=== PATIENT | female | born 1940 | race Caucasian/White ===

== ENCOUNTER → 2024-03-25 15:46 | Outpatient (REF) | payer MEDICARE, OTHER, SELFPAY | LOC: WDC 15:46 | PROVIDERS: ATTENDING PHYSICIAN Internal Medicine | DX: Z12.31 Encounter for screening mammogram for malignant neoplasm of breast (principal) | CPT/HCPCS: 77063; 77067 ==

== ENCOUNTER → 2024-04-18 11:17 | Outpatient (REF) | payer MEDICARE, OTHER, SELFPAY | LOC: MRI 3T 11:17 | PROVIDERS: ATTENDING PHYSICIAN Specialist; FAMILY PHYSICIAN Internal Medicine | DX: M25.562 Pain in left knee (principal); M17.12 Unilateral primary osteoarthritis, left knee | CPT/HCPCS: 73721 ==

== ENCOUNTER → 2024-05-08 08:20 | Outpatient (REF) | payer MEDICARE, OTHER, SELFPAY | LOC: MRI 3T 08:20 | PROVIDERS: ATTENDING PHYSICIAN Orthopaedic Surgery; FAMILY PHYSICIAN Internal Medicine | DX: M54.12 Radiculopathy, cervical region (principal) | CPT/HCPCS: 72141 ==

== ENCOUNTER → 2024-05-20 08:45 | Outpatient (REF) | payer MEDICARE, OTHER, SELFPAY ==
[2024-05-20 09:56] LABS: % Basophils 1.5 % (0-2); % Eosinophils 6.5 % (0-6); % Immature Granulocytes 0.3 % (0-0.5); % Lymphocytes 37.2 % (20.5-51.1); % Neutrophils 46.5 % (42.2-75.2); Absolute Basophils 0.1 10^3/uL (0-0.2); Absolute Eosinophils 0.4 10^3/uL (0-0.7); Absolute Lymphocytes 2.5 10^3/uL (1.2-3.4); Absolute Monocytes 0.5 10^3/uL (0.1-0.6); Absolute Neutrophils 3.1 10^3/uL (1.4-6.5); Hematocrit 43.8 % (37.0-47.0); Hemoglobin 14.4 g/dL (12.0-16.0); Mean Corp Hgb Conc. 32.9 g/dL (33.0-37.0); Mean Corpuscular Hgb 30.9 pg (27.0-31.0); Mean Platelet Volume 9.5 fL (7.4-10.4); Nucleated Red Blood Cells % 0 %; Platelet Count 286 10^3/uL (130-400); Red Blood Cell Count 4.66 10^6/uL (4.20-5.40); Red Cell Dist. Width 12.4 % (11.5-14.5); White Blood Cell Count 6.6 10^3/uL (4.8-10.8)
[2024-05-20 10:11] LABS: Blood Urea Nitrogen 29 mg/dl (7-17); Calcium 9.7 mg/dl (8.4-10.2); Carbon Dioxide 24 mmol/L (22-30); Chloride 108 mmol/L (98-107); Glucose 66 mg/dl (70-99); Potassium 3.8 mmol/L (3.5-5.1); Sodium 142 mmol/L (135-145); eGFR 55.21
== END ==
LOC: SDSPAT 08:45
PROVIDERS: ATTENDING PHYSICIAN Specialist; FAMILY PHYSICIAN Internal Medicine
DX: Z01.818 Encounter for other preprocedural examination (principal)
CPT/HCPCS: 36415; 80048; 85025; 93005

== ENCOUNTER 2024-05-26 12:08 | Emergency (ER) | payer MEDICARE, OTHER, SELFPAY ==
[2024-05-26 12:19] VITALS: BP 123/80
--- NOTE | 2024-05-26 12:51 | ED.MUSCINJ ---
HPI-Injury
General
Chief Complaint: Fall
Source: patient
Exam Limitations: none
Time Seen by Provider: 05/26/24 12:39
Nursing documentation reviewed up to this point in time: agreed with
History of Present Illness-Injury
Initial Injury comments:
84 yo female sent here from . Yesterday in her garden was stepping backwards and stumbled, fell, striking the back of her head on a wooden fence. No LOC, denies headache, mildly sore at the site. Denies change in vision, denies n/v. Denies neck
new pain (has chronic neck pain and is scheduled for an injection next week ) or any other injury.
Past History
Past History
ED Past Medical History: HTN
ED Past Surgical History: Appendectomy and Tonsilectomy
Social History
Personal:
Living: alone
Review of Systems
Review of Systems
Allergies reviewed?: Yes
All Other Systems: ROS reviewed and negative except as documented in HPI and ROS
Constitutional: Denies fatigue
ABD/GI: Denies nausea or vomiting
Musculoskeletal: Reports no symptoms
Skin: Reports no symptoms
Neurological: Reports no symptoms
Phy Exam
Physical Exam
Physical Exam:
CONSTUTIONAL: Afebrile.
Head: mild tenderness lower occiput, no swelling or discoloration
EYES: PERRL, conjunctivae normal
Neck: Supple
ENMT: moist mucus membranes, Pharynx nl
RESPIRATORY: Regular respirations, nonlabored, lungs clear.
CARDIOVASCULAR: Regular rate and rhythm, no murmurs, no rubs.
GI: Soft, nontender, normal BS
MUSCULOSKELETAL: No spinal bony tenderness. Moves with ease. Well perfused. Very spry, Full ROM of all extremities and spine with hands flat on floor.
SKIN: Warm, dry, pink
PSYCH: Normal mood and affect. Well kept, interactive and appropriate
NEUROLOGIC: Awake, alert and oriented. No focal neurological deficits. CN 2-12 intact. Ambulates well with steady gait.
MDM/Problems Addressed
Differential Diagnosis Includes:
Contusion scalp, minor head injury, concussion
MDM/Problems Addressed:
84 yo female sent here from . Yesterday in her garden was stepping backwards and stumbled, fell, striking the back of her head on a wooden fence. No LOC, denies headache, mildly sore at the site. Denies change in vision, denies n/v. Denies neck
new pain (has chronic neck pain and is scheduled for an injection next week ) or any other injury.
Patient is very spry, full range of motion of all extremities, full range of motion of her spine, no bony tenderness, no indication for imaging
No loss of consciousness, not anticoagulated, no focal neurological deficits, no significant headache, no indication for head CT
No sign of concussion
*Critical Care Note
Total Time (30-74mins, 75-104mins- exclusive of procedures): Not Applicable
ED Attending Note
-
Portions of this chart may have been created with voice recognition software.� Occasional wrong word or��sound alike� substitutions may have occurred due to the inherent limitations of voice recognition software.
Discharge Plan
Departure
Patient Disposition: Home (Routine Discharge)
Date of Disposition: 05/26/24
Time of Disposition: 12:55
Patient with high blood pressure during this ER visit?: No
Condition: Good
Discharge Problem:
Fall from slip, trip, or stumble, Minor head injury, Contusion of scalp
Instructions: Head Injury in Adults (DC), Contusion (DC), Preventing falls in adults
Prescriptions:
No Action
candesartan-hydrochlorothiazid [Atacand HCT] 1 EACH tablet
1 tab PO DAILY
pantoprazole 40 MG tablet,delayed release (DR/EC)
40 mg PO DAILY 30 Days Qty: 30 0RF
amoxicillin-pot clavulanate 875-125 mg tablet
1 tab PO Q12H Qty: 14 0RF
hydrocodone-acetaminophen 5-325 mg tablet
1 tab PO Q4H PRN (Reason: Pain) Qty: 10 0RF
meclizine [Antivert] 25 mg tablet,chewable
25 mg PO Q8HPRN PRN (Reason: nausea or vertigo) Qty: 14 0RF
Referrals:
Valentine Freitas MD [Family Provider] - As needed
Activity Restrictions/Additional Instructions:
As we discussed, I see nothing worrisome in your exam. No sign of concussion.
Interventions
Interventions:
*Risk Screen - Suicide Last Done: 05/26/24 12:19
*General Assessment Last Done: 05/26/24 12:19
*Neglect/Abuse Screening Last Done: 05/26/24 12:19
ED- Fall Risk Assessment Last Done: 05/26/24 13:02
*ED COVID-19 Vaccine History Last Done: 05/26/24 12:19
*Nursing Disposition Last Done: 05/26/24 13:02
ED-Musculoskeletal Assessment Last Done: 05/26/24 13:01
ED- Neurological Assessment Last Done: 05/26/24 13:01
ED-Skin Assessment Last Done: 05/26/24 13:01
Discharge Date and Time
Discharge Date/Time: 05/26/24 13:03
Print Language: AUSTRIAN
== END 2024-05-26 13:03 | disposition home or self-care (01) ==
LOC: EMR 12:08
PROVIDERS: EMERGENCY PHYSICIAN Emergency Medicine; FAMILY PHYSICIAN Internal Medicine
DX: S00.03XA Contusion of scalp, initial encounter (principal); S09.90XA Unspecified injury of head, initial encounter; W01.198A Fall on same level from slipping, tripping and stumbling with subsequent striking against other object, initial encounter; I10 Essential (primary) hypertension; M54.2 Cervicalgia; G89.29 Other chronic pain; Z88.5 Allergy status to narcotic agent
CPT/HCPCS: 99282

== ENCOUNTER 2024-06-06 06:05 | Day surgery (SDC) | payer MEDICARE, OTHER, SELFPAY ==
[2024-05-20 09:01] VITALS: BMI 19.1
[2024-06-06] VITALS (8 sets, daily range): BP systolic 103–179; BP diastolic 54–88; BMI 19.1
[2024-06-06] MEDS: CELEBREX 200 MG PO (06:25)
[2024-06-06] MEDS: NORMOSOL-R 1000 IV (06:25)
[2024-06-06] MEDS: TYLENOL 1000 MG PO (06:25)
== END 2024-06-06 10:00 | disposition home or self-care (01) ==
LOC: SDS 06:05
PROVIDERS: ATTENDING PHYSICIAN Specialist
DX: S83.231A Complex tear of medial meniscus, current injury, right knee, initial encounter (principal); S83.281A Other tear of lateral meniscus, current injury, right knee, initial encounter; X58.XXXA Exposure to other specified factors, initial encounter; M94.261 Chondromalacia, right knee
CPT/HCPCS: 29880

== ENCOUNTER 2024-08-28 06:10 | Outpatient (RCR) | payer MEDICARE, OTHER, SELFPAY | END 2024-08-28 23:59 | disposition home or self-care (01) | LOC: RPT 06:10 | PROVIDERS: ATTENDING PHYSICIAN Internal Medicine | DX: R42 Dizziness and giddiness (principal); M54.2 Cervicalgia; Z73.6 Limitation of activities due to disability | CPT/HCPCS: 97110; 97162 ==

== ENCOUNTER → 2024-11-24 09:29 | Outpatient (REF) | payer MEDICARE, OTHER, SELFPAY ==
[2024-11-24 10:51] LABS: HDL Cholesterol 95 mg/dl; LDL Cholesterol, Calculated 85 mg/dl; Total Cholesterol 218 mg/dl (50-199); Triglyceride 190 mg/dl (10-149); Very Low Density Lipoprotein 38 mg/dl (0-30)
== END ==
LOC: REG 09:29
PROVIDERS: ATTENDING PHYSICIAN Internal Medicine
DX: E78.2 Mixed hyperlipidemia (principal)
CPT/HCPCS: 36415; 80061

== ENCOUNTER 2025-01-24 14:37 | Emergency (ER) | payer MEDICARE, OTHER, SELFPAY ==
[2025-01-24] VITALS (13 sets, daily range): BP systolic 158–215; BP diastolic 73–179; BMI 19.5
--- NOTE | 2025-01-24 15:43 | EDRN ---
this RN and Dr. Novak were at the pts bedside and Dr. Novak was discussing options for treatment, the pt appeared anxious, this RN attempted to talk the pt through deep breathing, the pt did not want IV medications for her hypertension and did not
want labs drawn and did not want a CT scan, but after Dr. Novak spoke with the pt the pt agreed with the PIV, IV medication, labs, and the head CT, the pts face is flushed, PIV was placed, labs drawn and sent
--- NOTE | 2025-01-24 15:43 | ED.GENMED ---
History of Present Illness
General
Chief Complaint: Blood Pressure Problem
Source: patient
Exam Limitations: none
Time Seen by Provider: 01/24/25 15:36
History of Present Illness
History of Present Illness:
See MDM
Past History
Past History
ED Past Medical History: HTN
ED Past Surgical History: Appendectomy and Tonsilectomy
Social History
Personal:
Living: alone
Phy Exam
Physical Exam
Physical Exam:
See MDM
Course
Orders/Labs/Results
Orders:
Orders
01/24/25 14:43
Electrocardiogram (*1) Urgent
Reason for Study: Hypertension, Benign
01/24/25 14:44
EKG- Treatment ONCE
01/24/25 15:42
CT Head W/o Iv Contrast Urgent
Comment:
Reason For Exam: dizzy, elevated BP, Headache
0.9% Sodium Chloride 1000 ml [Nss] 1,000 ml IV BOLUS
HydrALAZINE [Apresoline] 10 mg IV NOW STA
01/24/25 15:51
Complete Blood Count/With Diff Urgent
Comprehensive Metabolic Panel Urgent
Troponin I Urgent
01/24/25 17:14
Losartan [Cozaar] 50 mg PO NOW STA
Abnormal Lab Results
01/24/25
15:51
MCH 31.8 H pg
(27.0-31.0)
BUN 27 H mg/dl
(7-17)
01/24/25 15:51
01/24/25 15:51
Vital Signs
Initial and Last Documented VS:
Initial Vital Signs
Temp Pulse Resp BP Pulse Ox
98.2 F 68 16 215/110 98
01/24/25 14:41 01/24/25 14:41 01/24/25 14:41 01/24/25 14:41 01/24/25 14:41
Last Documented Vital Signs
Temp Pulse Resp BP Pulse Ox
98.5 F 82 16 191/86 99
01/24/25 15:43 01/24/25 17:22 01/24/25 17:21 01/24/25 17:22 01/24/25 17:21
MDM/Problems Addressed
Differential Diagnosis Includes:
HPI and MDM Narrative:
85-year-old female presenting with complaints of dizziness and head pressure. Patient states she has been feeling mildly dizzy for few days. Patient is convinced this is a mild exacerbation of her vertigo. She was visiting a friend and she
explained her symptoms. When I check, she was instructed to go to the emergency department for further evaluation. Her blood pressure is confirmed elevated but patient thinks this is related to not having her blood pressure medicine for 1 week.
She ran out of her pills and her usual prescription delivery has not arrived yet
On exam, she is well-appearing nontoxic. She is mildly dry. Will give IV fluids. She has normal finger-nose making stroke less likely. Given her uncontrolled blood pressure and her complaints, will obtain basic blood work and CT head. Will give
dose of IV hydralazine. Her heart rate is in the 60s. Will avoid beta-myron
Physical exam
General: Well appearing and non-toxic
HEENT: protecting airway. Mildly dry mucous membranes
Neck: appears supple
CV: No evidence of cyanosis. Regular rate and rhythm
Resp: No accessory muscle use
Abd: Non-distended
Extremities: No deformities
Neuro: alert. Normal finger-nose
Psych: Normal affect
Skin: Intact
Problems Addressed including Acute and Chronic Conditions affecting care:
1. Uncontrolled blood pressure
Acuity: acute
Prognosis: unstable
Details: Likely in the setting of medication noncompliance. Will give dose of IV hydralazine
2. Dizziness
Acuity: acute
Prognosis: stable
Details: Will obtain CT head looking for mass versus subacute stroke versus hemorrhage
Updates
Blood work without evidence of endorgan damage. CT head negative. Blood pressure improving and patient states she feels comfortable going home
Differential Diagnosis (but not limited to): Hypertension emergency, stroke, hyponatremia
Testing considered: 2 troponin rule out
Drug therapy (if applicable): OTC meds, please see d/c instruction regarding Rx drugs
Amount and/or Complexity of Data Reviewed
Clinical info obtained from: Patient
External data reviewed: N/A
Labs I independently reviewed (but not limited to): Troponin normal
Radiology: The CT scan was personally and independently reviewed. In addition, official CT report reviewed.
Pulse Ox: not hypoxic
EKG independently reviewed: Sinus rhythm, normal axis, no STEMI
Drawer Upfitter: Sinus rhythm
Critical Care: N/A
Risk of Complication:
Social Determinants of health: Good social support
Discussed with other providers: N/A
Escalation of Care includes Admit/Obs: After being observed in the Emergency Department, pt stable for discharge.
Occasional wrong word or 'sound a like' substitutions may have occurred due to the inherent limitations of voice recognition software. Read the chart carefully and recognize, using context, where substitutions have occurred.
*Critical Care Note
Total Time (30-74mins, 75-104mins- exclusive of procedures): Not Applicable
ED Attending Note
-
Portions of this chart may have been created with voice recognition software.� Occasional wrong word or��sound alike� substitutions may have occurred due to the inherent limitations of voice recognition software.
Discharge Plan
Departure
Patient Disposition: Home (Routine Discharge)
Date of Disposition: 01/24/25
Time of Disposition: 17:09
Patient with high blood pressure during this ER visit?: Yes
Discharge Problem:
HTN (hypertension), Dizziness
Instructions: High Blood Pressure (DC)
Prescriptions:
New
candesartan 16 mg tablet
16 mg PO DAILY Qty: 14 0RF
No Action
atorvastatin 10 mg Tablet
10 mg PO HS
omeprazole 40 mg Capsule,Delayed Release(Dr/Ec)
40 mg PO DAILY
aspirin [Aspir-81] 81 mg Tablet,Delayed Release (Dr/Ec)
81 mg PO DAILY
candesartan 16 mg Tablet
16 mg PO HS
biotin 1,000 mcg Tablet,Chewable
1,000 mcg PO DAILY
escitalopram oxalate [Lexapro] 5 mg Tablet
5 mg PO DAILY
Referrals:
Jose Elias Palacios DO [Family Provider] -
Activity Restrictions/Additional Instructions:
Please return for any worsening symptoms.
You may return at any time if you have further concerns.
Please follow up with your doctor at the first available appointment, preferably this week. Please discuss your elevated blood pressure and your ongoing symptoms.
Thank you for choosing [facility].
Interventions
Interventions:
*Risk Screen - Suicide Last Done: 01/24/25 14:43
*General Assessment Last Done: 01/24/25 15:43
*Neglect/Abuse Screening Last Done: 01/24/25 14:43
ED- Fall Risk Assessment Last Done: 01/24/25 15:43
*ED COVID-19 Vaccine History Last Done: 01/24/25 15:43
*Nursing Disposition Last Done: 01/24/25 17:29
ED- Cardiac Assessment Last Done: 01/24/25 15:43
ED- Neurological Assessment Last Done: 01/24/25 15:43
ED- Pulmonary Assessment Last Done: 01/24/25 15:43
Discharge Date and Time
Discharge Date/Time: 01/24/25 17:31
Print Language: GIBRALTARIAN
[2025-01-24] MEDS: APRESOLINE 10 MG IV (15:53)
[2025-01-24] MEDS: NSS 1000 IV (15:54)
[2025-01-24 15:58] LABS: % Basophils 0.9 % (0-2); % Eosinophils 1.7 % (0-6); % Immature Granulocytes 0.3 % (0-0.5); % Lymphocytes 29.1 % (20.5-51.1); % Monocytes 8.8 % (1.7-9.3); % Neutrophils 59.2 % (42.2-75.2); Absolute Basophils 0.1 10^3/uL (0-0.2); Absolute Eosinophils 0.1 10^3/uL (0-0.7); Absolute Lymphocytes 1.8 10^3/uL (1.2-3.4); Absolute Monocytes 0.6 10^3/uL (0.1-0.6); Absolute Neutrophils 3.7 10^3/uL (1.4-6.5); Hematocrit 41.4 % (37.0-47.0); Mean Corp Hgb Conc. 33.8 g/dL (33.0-37.0); Mean Corpuscular Hgb 31.8 pg (27.0-31.0); Mean Corpuscular Volume 94.1 fL (81.0-99.0); Mean Platelet Volume 9.7 fL (7.4-10.4); Nucleated Red Blood Cells % 0 %; Platelet Count 198 10^3/uL (130-400); Red Cell Dist. Width 12.3 % (11.5-14.5); White Blood Cell Count 6.3 10^3/uL (4.8-10.8)
[2025-01-24 16:13] LABS: ALT (SGPT) 24 U/L (0-35); AST (SGOT) 26 U/L (14-36); Albumin 4.3 g/dl (3.5-5.0); Alkaline Phosphatase 77 U/L (38-126); Blood Urea Nitrogen 27 mg/dl (7-17); Calcium 9.4 mg/dl (8.4-10.2); Carbon Dioxide 26 mmol/L (22-30); Chloride 105 mmol/L (98-107); Estimated Creatinine Clearance 35 ml/min; Glucose 95 mg/dl (70-99); Potassium 3.9 mmol/L (3.5-5.1); Sodium 138 mmol/L (135-145); Total Bilirubin 1.3 mg/dl (0.2-1.3); Total Protein 6.3 g/dl (6.3-8.2); eGFR > 60.00
[2025-01-24 16:21] LABS: Troponin I < 0.012 ng/ml
--- NOTE | 2025-01-24 16:25 | EDRN ---
the pt pressed the call lynn and stated that she needed to use the bathroom, this RN unhooked the pt from the heart monitor, BP cuff, and Sp02 monitor, the pt has no c/o dizziness, no c/o lightheadedness, and no c/o chest pain and no c/o SOB, the pt
ambulated to the bathroom and this RN gave the pt privacy to go to the bathroom, will continue to monitor closely
--- NOTE | 2025-01-24 16:28 | EDRN ---
the pt walked out of ED Bed #9 and yelled to this RN, 'I want my brought back here right now', and then the pt entered the room, this RN entered the pts room after the pt and stated to the pt that this RN could bring her back and
this RN then asked the pt if she was okay, the pt was visibly upset and appeared to be anxious and the pts face was flushed, the pt stated to this RN, 'First of all I want to know how much longer I am going to be here, you haven't done anything and
i want to go to CT scan now', this RN notified the pt that this RN would let her know what CT calls this RN when they are ready for the pt, this RN again asked if the pt was okay and the pt stated to this RN, 'I just think you are horrible and you
are the absolute worst nurse that i have ever had, you have absolutely no compassion what so ever and I know a lot of nurses and you just are absolutely horrible and i can't stand you', this RN apologized to the pt for the way that she felt however
this RN stated to the pt that this RN was unsure what this RN did to make the pt feel this way however this RN apologized again for the way that the pt felt, the pt then stated, 'Yeah, you haven't done absolutely anything for me, you just sit at the
nurses station and do nothing all day', this RN assured the pt that this RN amy labs, gave the pt blood pressure medications, and this RN explained to the pt that this RN was waiting for CT to call to state that they are ready for the pt, the pt
then stated to this RN, 'I just don't like you and i don't think you're a good nurse what so ever', this RN apologized to the pt for the way that they felt and assured the pt that this RN can do anything to make the pt feel more comfortable, this RN
notified Dr. Novak of the pts concerns
--- NOTE | 2025-01-24 16:46 | EDRN ---
this RN called CT scan again and CT scan stated that they were ready for the pt, this RN entered the pts room and notified the pt that CT scan was ready for her and the pt started to unhook herself from the desk monitor and BP cuff and Sp02
monitor, the pt started to get out of the stretcher and this RN offered to wheel the pt to CT in the stretcher and the pt stated, 'I don't need that I can walk', this RN asked the pt if she was dizzy or light headed and the pt stated 'I am fine to
walk lets just go', this RN walked with the pt to CT scan, the pt walked about 2 feet in front of this RN the entire time and this RN directed the pt verbally where to go, this RN sat the pt in front of the CT scan room and notified her that a CT
tech would come out to get her when they were ready
--- NOTE | 2025-01-24 17:06 | EDRN ---
this RN entered the pts room when the pt got back from CT scan to recheck the pts BP, this RN asked the pt if she was okay if this RN checked her blood pressure and the pt held her arm up and stated, 'Yeah go ahead if you must, while you're at it
take the IV out too, this RN checked the pt BP and the pt was still hypertensive, the pt stated to this RN, 'Yeah so you gave me blood pressure medication and my blood pressure is still high so you did nothing for me, take my IV out', this RN
removed the pts PIV and placed a pressure dressing and the pt stated, 'I want to go home now', this RN notified Dr. Novak
--- NOTE | 2025-01-24 17:10 | EDRN ---
this RN entered the pts room and apologized again to the pt for how she felt and this RN offered the ED managers name if the pt wanted to call the manager of digital and discuss her concerns, the pt declined and stated, 'I don't need that, but next time, you
should keep in mind that people don't to be spoken down to because of their age, just because i'm older doesn't mean you can disrespect me, but hopefully you learned your lesson', awaiting for discharge papers from Dr. Novak
[2025-01-24] MEDS: COZAAR 50 MG PO (17:22)
--- NOTE | 2025-01-24 17:27 | EDRN ---
this RN entered the pts room and the pt was dressed and ready to go home, this RN and Dr. Novak were at the pts bedside and provided discharge instructions for the pt and the pts and they verbally stated that they understood, Dr. Novak
answered discharge questions, the pt was agreeable to taking PO Losartan, the pt was able to take Losartan with water with no issues, the pt left the department with her
== END 2025-01-24 17:31 | disposition home or self-care (01) ==
LOC: EMR 14:37
PROVIDERS: EMERGENCY PHYSICIAN Student in an Organized Health Care Education/Training Program; FAMILY PHYSICIAN Family Medicine
DX: I10 Essential (primary) hypertension (principal); R42 Dizziness and giddiness
CPT/HCPCS: 99284; 96374; 96361; 70450; 80053; 84484; 85025; 93005

== ENCOUNTER → 2025-05-07 14:15 | Outpatient (REF) | payer MEDICARE, OTHER, SELFPAY ==
[2025-05-07 14:56] LABS: % Basophils 0.8 % (0-2); % Immature Granulocytes 0.4 % (0-0.5); % Lymphocytes 25.6 % (20.5-51.1); % Monocytes 8.1 % (1.7-9.3); % Neutrophils 63.1 % (42.2-75.2); Absolute Basophils 0.1 10^3/uL (0-0.2); Absolute Eosinophils 0.2 10^3/uL (0-0.7); Absolute Lymphocytes 2.2 10^3/uL (1.2-3.4); Absolute Monocytes 0.7 10^3/uL (0.1-0.6); Absolute Neutrophils 5.3 10^3/uL (1.4-6.5); Hematocrit 41.4 % (37.0-47.0); Hemoglobin 13.7 g/dL (12.0-16.0); Mean Corp Hgb Conc. 33.1 g/dL (33.0-37.0); Mean Corpuscular Hgb 30.7 pg (27.0-31.0); Mean Corpuscular Volume 92.8 fL (81.0-99.0); Mean Platelet Volume 9.9 fL (7.4-10.4); Nucleated Red Blood Cells % 0 %; Platelet Count 224 10^3/uL (130-400); Red Blood Cell Count 4.46 10^6/uL (4.20-5.40); Red Cell Dist. Width 13.2 % (11.5-14.5); White Blood Cell Count 8.5 10^3/uL (4.8-10.8)
[2025-05-07 15:31] LABS: ALT (SGPT) 21 U/L (0-35); AST (SGOT) 24 U/L (14-36); Alkaline Phosphatase 66 U/L (38-126); Blood Urea Nitrogen 22 mg/dl (7-17); Calcium 9.7 mg/dl (8.4-10.2); Carbon Dioxide 27 mmol/L (22-30); Chloride 110 mmol/L (98-107); Glucose 138 mg/dl (70-99); HDL Cholesterol 84 mg/dl; LDL Cholesterol, Calculated 30 mg/dl; Potassium 4.3 mmol/L (3.5-5.1); Sodium 143 mmol/L (135-145); Total Bilirubin 0.8 mg/dl (0.2-1.3); Total Cholesterol 132 mg/dl (50-199); Total Protein 6.4 g/dl (6.3-8.2); Triglyceride 92 mg/dl (10-149); Very Low Density Lipoprotein 18 mg/dl (0-30); eGFR 54.87
[2025-05-07 16:38] LABS: TSH 0.03 uIU/ml (0.47-4.68)
== END ==
LOC: REG 14:15
PROVIDERS: ATTENDING PHYSICIAN Internal Medicine
DX: E78.5 Hyperlipidemia, unspecified (principal); I63.9 Cerebral infarction, unspecified; E03.9 Hypothyroidism, unspecified
CPT/HCPCS: 36415; 80053; 80061; 84443; 85025

== ENCOUNTER 2025-05-26 09:37 | Outpatient (RCR) | payer MEDICARE, OTHER, SELFPAY | END 2025-05-26 23:59 | disposition home or self-care (01) | LOC: RPT 09:37 | PROVIDERS: ATTENDING PHYSICIAN Orthopaedic Surgery Hand Surgery; FAMILY PHYSICIAN Internal Medicine | DX: M25.511 Pain in right shoulder (principal); Z73.6 Limitation of activities due to disability | CPT/HCPCS: 97161 ==

== ENCOUNTER → 2025-05-28 07:20 | Outpatient (REF) | payer MEDICARE, OTHER, SELFPAY | LOC: MRI 3T 07:20 | PROVIDERS: ATTENDING PHYSICIAN Internal Medicine | DX: Z86.73 Personal history of transient ischemic attack (TIA), and cerebral infarction without residual deficits (principal) | CPT/HCPCS: 70553; A9575 ==

== ENCOUNTER 2025-07-08 09:50 | Emergency (ER) | payer MEDICARE, OTHER, SELFPAY ==
[2025-07-08 09:51] VITALS: BP 137/69
--- NOTE | 2025-07-08 11:09 | ED.GENMED ---
History of Present Illness
General
Chief Complaint: Fall
Source: patient
Exam Limitations: none
Time Seen by Provider: 07/08/25 10:13
Nursing documentation reviewed up to this point in time: agreed with
History of Present Illness
History of Present Illness:
85-year-old female with history as noted presents to the ER for evaluation after trip and fall. Patient was walking out of a restaurant last night when she tripped and fell forward and struck her face on the ground. She did not lose consciousness.
She did not sustain any other injuries. She had some bleeding from a laceration on her nose. She went home and went to sleep but this morning noticed that the laceration was still oozing blood and came to the ER for assessment with concern that
she might need stitches. She has some soreness of her nose and some bruising around her left eye. She denies any headache, neck pain, back pain. Denies any rib pain or abdominal pain. Denies any pain in her extremities and has been ambulatory
since the fall. She is not on blood thinners.
Past History
Past History
ED Past Medical History: HTN
ED Past Surgical History: Appendectomy and Tonsilectomy
Social History
Personal:
Living: alone
Review of Systems
Review of Systems
All Other Systems: ROS reviewed and negative except as documented in HPI and ROS
EENT: Reports other (Nose pain/facial pain)
Respiratory: Denies trouble breathing
Cardiac: Denies chest pain
ABD/GI: Denies abdominal pain, nausea or vomiting
: Denies flank pain
Musculoskeletal: Denies joint pain, neck pain or back pain
Neurological: Denies dizzy or headache
Phy Exam
Physical Exam
Physical Exam:
General: Awake, alert, oriented x3; no acute distress
Head: Normocephalic, patient has some left periorbital ecchymosis, some bruising and swelling along the nasal bridge, approximately 2 cm laceration of the nasal bridge; she has some swelling of the upper lip and an abrasion on the upper lip but no
laceration
Eyes: Conjunctiva normal, EOMI, pupils equal round reactive to light bilaterally
Throat: Airway intact, handling secretions, tongue atraumatic, minor swelling of the lip but no inner lip laceration, no signs of dental fracture or trauma
Neck: Trachea midline, no cervical spine tenderness, good range of motion without pain
Lungs: Breathing comfortably with no distress
Heart: Regular rate; no chest wall tenderness
Abd: Soft, non distended, nontender
Back: No signs of trauma the back or flank and no tenderness of the thoracic or lumbar spine
Neuro: No gross deficits, ambulatory with steady gait unassisted
Extremities: Atraumatic, no tenderness, moving comfortably without pain, no edema in extremities, equal pulses in all extremities
Scores
Heart Failure Risk
Heart Failure Risk Score: Not Applicable
Heart Score for Chest Pain Patients
STEMI patient?: Not applicable
Withdrawal Assessment of Alcohol
Withdrawal Assessment Completed?: Not applicable
Course
Orders/Labs/Results
Orders:
Orders
07/08/25 10:14
CT Head W/o Iv Contrast Urgent
Comment:
Reason For Exam: fall with head strike (frontal)
07/08/25 10:15
CT Cervical Spine W/o Iv Contr Urgent
Comment:
Reason For Exam: fall with frontal head strike
CT Facial Bones W/o Iv Contras Urgent
Comment:
Reason For Exam: fall with facial trauma, nasal pain
Tetanus/Diphth/Acelpertussis [Adacel] 0.5 ml IM .ONCE ONE
Vital Signs
Initial and Last Documented VS:
Initial Vital Signs
Temp Pulse Resp BP Pulse Ox
36.7 C 86 16 137/69 98
07/08/25 09:51 07/08/25 09:51 07/08/25 09:51 07/08/25 09:51 07/08/25 09:51
Last Documented Vital Signs
Temp Pulse Resp BP Pulse Ox
36.7 C 86 16 137/69 98
07/08/25 09:51 07/08/25 09:51 07/08/25 09:51 07/08/25 09:51 07/08/25 11:10
Procedures
Laceration Closure
Nose:
Status of Wound: clean
Size of Wound in cm: 2
Description of Wound Edges: ragged
Preparation: cleaned with saline
Anesthesia: 1% Lidocaine
Revision/Debridement: minor revision
Wound exploration: extensive cleaning of contaminated wound
Type of Closure: single layer closure
Skin Closure Material: 6-0 nylon
Number of sutures: 3
MDM/Problems Addressed
Differential Diagnosis Includes:
Facial fracture, subdural/subarachnoid hemorrhage, facial contusions
MDM/Problems Addressed:
85-year-old female presents for evaluation after trip and fall last night. She has a laceration on her nose and some bruising on her face, soreness of the nose and face. Vitals and exam as above. Will check CT of the head, cervical spine, facial
bones. Update tetanus. Irrigate and repair laceration.
Laceration repaired as documented procedure note. CT the head, cervical spine, facial bones showed no acute posttraumatic pathology. Tetanus updated. Stable for discharge provide follow-up plan return precautions including plan for timeline of
suture removal. All questions answered.
*Radiology
Radiology exam reviewed: radiology read reviewed
*Pulse Oximetry
SaO2: 98
Oxygen Mode of Delivery: Room air
Patient hypoxic: no (98%)
*Critical Care Note
Total Time (30-74mins, 75-104mins- exclusive of procedures): Not Applicable
Data Reviewed
Source: patient and records
ED Attending Note
-
Portions of this chart may have been created with voice recognition software.� Occasional wrong word or��sound alike� substitutions may have occurred due to the inherent limitations of voice recognition software.
Discharge Plan
Departure
Patient Disposition: Home (Routine Discharge)
Date of Disposition: 07/08/25
Time of Disposition: 11:08
Patient with high blood pressure during this ER visit?: No
Discharge Problem:
Contusion of face, Laceration of nose
Instructions: Laceration Repair With Stitches (DC)
Prescriptions:
No Action
atorvastatin 10 mg Tablet
10 mg PO HS
omeprazole 40 mg Capsule,Delayed Release(Dr/Ec)
40 mg PO DAILY
aspirin [Aspir-81] 81 mg Tablet,Delayed Release (Dr/Ec)
81 mg PO DAILY
candesartan 16 mg Tablet
16 mg PO HS
biotin 1,000 mcg Tablet,Chewable
1,000 mcg PO DAILY
escitalopram oxalate [Lexapro] 5 mg Tablet
5 mg PO DAILY
candesartan 16 mg tablet
16 mg PO DAILY Qty: 14 0RF
Referrals:
Valentine Freitas MD [Family Provider, Internal Medicine] - Follow up in 1 week
Activity Restrictions/Additional Instructions:
You were seen after a trip and fall. You had a laceration on your nose that was repaired with stitches. The stitches must be removed in 1 week�you can either return to the emergency room, follow-up with your primary doctor, or go to urgent care to
have your stitches removed. If you notice any signs of infection return immediately.
Thank you for visiting the Emergency Department at [facility].
1. Please schedule a follow up appointment as directed. Call first thing tomorrow morning to make an appointment.
2. If indicated, please take your medications as instructed and indicated on discharge paperwork.
3. If any of your symptoms do not improve, or persist, or become more severe within 6-12 hours, please return to the emergency department for further care.
4. Please return to the emergency department if you develop a headache, neck pain/stiffness, fever greater than 100.4F, chest pain, shortness of breath, persistent nausea, vomiting, slurred speech, difficulty walking, numbness/tingling, weakness,
signs of infection or any other symptoms that are worrisome to you.
Please call [phone] if you have any questions.
Interventions
Interventions:
*Risk Screen - Suicide Last Done: 07/08/25 11:16
*General Assessment Last Done: 07/08/25 11:16
*Neglect/Abuse Screening Last Done: 07/08/25 11:16
*ED- Fall Risk Assessment Last Done: 07/08/25 11:16
*ED COVID-19 Vaccine History Last Done: 07/08/25 11:16
Discharge Date and Time
Print Language: SWEDISH
[2025-07-08 11:16] VITALS: BMI 19.0
[2025-07-08] MEDS: ADACEL 0.5 ML IM (11:23)
== END 2025-07-08 11:30 | disposition home or self-care (01) ==
LOC: EMR 09:50
PROVIDERS: EMERGENCY PHYSICIAN Emergency Medicine; FAMILY PHYSICIAN Internal Medicine
DX: S01.21XA Laceration without foreign body of nose, initial encounter (principal); W01.0XXA Fall on same level from slipping, tripping and stumbling without subsequent striking against object, initial encounter; Y93.01 Activity, walking, marching and hiking; Z23 Encounter for immunization; I10 Essential (primary) hypertension; Z90.49 Acquired absence of other specified parts of digestive tract
CPT/HCPCS: 99284; 12011; 90471; 70450; 70486; 72125; 90715

== ENCOUNTER 2025-08-18 06:04 | Day surgery (SDC) | payer MEDICARE, OTHER, SELFPAY ==
[2025-08-18] VITALS (10 sets, daily range): BP systolic 97–175; BP diastolic 69–111; BMI 19.2
[2025-08-18] MEDS: NORMOSOL-R/PLASMALYTE-A 1000 IV (07:23)
[2025-08-18] MEDS: TYLENOL 1000 MG PO (07:26)
[2025-08-18] MEDS: CELEBREX 200 MG PO (07:26)
[2025-08-18 08:31] LABS: ALT (SGPT) 18 U/L (0-35); AST (SGOT) 24 U/L (14-36); Albumin 4.1 g/dl (3.5-5.0); Alkaline Phosphatase 75 U/L (38-126); Blood Urea Nitrogen 19 mg/dl (7-17); Calcium 9.4 mg/dl (8.4-10.2); Carbon Dioxide 26 mmol/L (22-30); Chloride 109 mmol/L (98-107); Estimated Creatinine Clearance 40 ml/min; Glucose 110 mg/dl (70-99); Potassium 4.3 mmol/L (3.5-5.1); Sodium 139 mmol/L (135-145); Total Protein 6.5 g/dl (6.3-8.2); eGFR > 60.00
== END 2025-08-18 11:14 | disposition home or self-care (01) ==
LOC: SDS 06:04
PROVIDERS: ATTENDING PHYSICIAN Orthopaedic Surgery Hand Surgery
DX: M75.101 Unspecified rotator cuff tear or rupture of right shoulder, not specified as traumatic (principal); M75.42 Impingement syndrome of left shoulder
CPT/HCPCS: 29827; 80053; 93005

== ENCOUNTER 2025-09-14 07:28 | Outpatient (RCR) | payer MEDICARE, OTHER, SELFPAY | END 2025-09-14 23:59 | disposition home or self-care (01) | LOC: RPT 07:28 | PROVIDERS: ATTENDING PHYSICIAN Physician Assistant Surgical; FAMILY PHYSICIAN Internal Medicine | DX: Z47.89 Encounter for other orthopedic aftercare (principal); M25.511 Pain in right shoulder; M54.2 Cervicalgia; Z73.6 Limitation of activities due to disability | CPT/HCPCS: 97110; 97162 ==

== ENCOUNTER → 2025-09-24 16:36 | Outpatient (REF) | payer MEDICARE, OTHER, SELFPAY | LOC: PAVMRI 16:36 | PROVIDERS: ATTENDING PHYSICIAN Physician Assistant Surgical; FAMILY PHYSICIAN Internal Medicine | DX: M54.2 Cervicalgia (principal) | CPT/HCPCS: 72141 ==